=== PATIENT | male | born 1970 | race Caucasian/White ===

== ENCOUNTER 2017-02-24 08:53 | Emergency (ER) | payer SELFPAY ==
[~2017-02-24] VITALS: Ht 170.2 cm; Wt 72.0 kg
[2017-02-24] MEDS ORDERED: HALOPERIDOL 5 MG INJ IM STA (08:59)
[2017-02-24] MEDS ORDERED: SOD CHLORIDE 0.9% 1,000 ML IV STA ×2 (08:59→10:05)
[2017-02-24] MEDS ORDERED: BENZTROPINE 2 MG INJ IM ONE (09:00)
[2017-02-24] MEDS ORDERED: LORAZEPAM 2 MG INJ IM ONE (09:00)
[2017-02-24 09:15] VITALS: Ht 170.2 cm; Wt 72.0 kg
[2017-02-24 09:39] LABS: BASOPHIL # 0.1 10^3/ul (0.0-0.1); BASOPHILS % 0.5 % (0.0-2.0); EOSINOPHILS % 0.2 % (0.0-7.0); HEMATOCRIT 40.2 % (42.0-52.0); HEMOGLOBIN 13.6 g/dl (14.0-18.0); LYMPHOCYTES # 1.9 10^3/ul (0.8-2.9); LYMPHOCYTES % 14.9 % (15.0-51.0); MEAN CORPUSCULAR HEMOGLOBIN 30.7 pg (29.0-33.0); MEAN CORPUSCULAR HGB CONC 33.8 g/dl (32.0-37.0); MEAN CORPUSCULAR VOLUME 90.7 fl (82.0-101.0); MEAN PLATELET VOLUME 9.4 fl (7.4-10.4); MONOCYTE # 0.9 10^3/ul (0.3-0.9); MONOCYTES % 7.1 % (0.0-11.0); NEUTROPHILS % 76.9 % (39.0-77.0); PLATELET COUNT 326 10^3/UL (140-415); RED BLOOD COUNT 4.43 10^6/ul (4.70-6.10); RED CELL DISTRIBUTION WIDTH 12.9 % (11.5-14.5); WHITE BLOOD COUNT 12.6 10^3/ul (4.8-10.8)
[2017-02-24 09:56] LABS: ALANINE AMINOTRANSFERASE 33 IU/L (13-69); ALBUMIN 4.5 g/dl (3.3-4.9); ALBUMIN/GLOBULIN RATIO 1.32; ALKALINE PHOSPHATASE 68 IU/L (42-121); ANION GAP 17 (8-16); ASPARTATE AMINO TRANSFERASE 32 IU/L (15-46); BILIRUBIN,INDIRECT 0.6 mg/dl (0-1.1); BILIRUBIN,TOTAL 0.6 mg/dl (0.2-1.3); BLOOD UREA NITROGEN 17 mg/dl (7-20); CALCIUM 9.3 mg/dl (8.4-10.2); CARBON DIOXIDE 25 mmol/L (21-31); CHLORIDE 109 mmol/L (97-110); CREATININE 0.78 mg/dl (0.61-1.24); GLUCOSE 227 mg/dl (70-220); POTASSIUM 3.7 mmol/L (3.5-5.1); SODIUM 147 mmol/L (135-144); TOTAL PROTEIN 7.9 g/dl (6.1-8.1)
[2017-02-24 09:59] LABS: ACETAMINOPHEN < 10.0 ug/ml (10.0-30.0); ETHANOL < 10.0 mg/dl; SALICYLATE < 1.0 mg/dl (5.0-30.0)
--- NOTE | 2017-02-24 10:34 | RADRPT ---
PROCEDURE: XR Chest. CLINICAL INDICATION: Altered mental status TECHNIQUE: Single frontal view of the chest was obtained COMPARISON: None FINDINGS: The heart and mediastinum are within normal limits. The lungs are clear. There is no pleural effusion or pneumothorax. The bones and soft tissue show no acute change. IMPRESSION: No definite abnormalities are identified. RPTAT:AAJJ Roland Reyes Physician Date Time Electronically viewed and signed by Roland Reyes Physician on 02/24/2017 10:33 /
[2017-02-24 11:08] LABS: ADD UMIC YES; UR AMORPHOUS CRYSTAL MODERATE /HPF (NONE SEEN); UR ASCORBIC ACID 40 mg/dL (NEGATIVE); UR BILIRUBIN (Dip) NEGATIVE (NEGATIVE); UR BLOOD (Dip) NEGATIVE (NEGATIVE); UR CLARITY TURBID (CLEAR); UR COLOR GREEN (YELLOW); UR GLUCOSE (Dip) 2+ mg/dL (NEGATIVE); UR KETONES (Dip) NEGATIVE (NEGATIVE); UR LEUKOCYTE ESTERASE (Dip) NEGATIVE Leu/ul (NEGATIVE); UR MUCUS FEW /HPF (NONE SEEN); UR NITRITE (Dip) NEGATIVE (NEGATIVE); UR RBC 1 /HPF (0-5); UR SPECIFIC GRAVITY (Dip) 1.028 (1.003-1.030); UR TOTAL PROTEIN (Dip) 2+ mg/dl (NEGATIVE); UR UROBILINOGEN (Dip) NEGATIVE (NEGATIVE)
[2017-02-24 11:38] LABS: CANNABINOIDS Negative (NEGATIVE)
[2017-02-24 11:46] LABS: BARBITURATES Negative (NEGATIVE); BENZODIAZEPINES Negative (NEGATIVE); COCAINE Negative (NEGATIVE); OPIATES Negative (NEGATIVE)
--- NOTE | 2017-02-24 13:58 | ERA ---
ER Documentation Chief Complaint Date/Time DATE: 02/24/17 TIME: 13:51 Chief Complaint HPI This is a 46-year-old male who presents to the emergency room with agitation. The patient was found running away from police in the field. It was hot outside. The patient admitted to using cocaine and methamphetamine. The patient was brought in because of agitation. Upon arrival the patient agitated the only history is able to provide is that he used cocaine and methamphetamine. There is no report of fall or trauma head injury. The patient was agitated requiring restraints upon arrival. ROS All systems reviewed and are negative except as per history of present illness. Medications Home Meds Unable to Obtain Active Prescriptions or Reported Meds Allergies Allergies: Coded Allergies: Unknown: Unable to obtain (Unverified , 02/24/17) PMhx/Soc Medical and Surgical Hx: Unable to obtain Hx Alcohol Use: Yes Hx Substance Use: Yes Hx Tobacco Use: No Smoking Status: Unknown if ever smoked FmHx Family History: No diabetes Physical Exam Vitals Vital Signs Date Time Temp Pulse Resp B/P Pulse Ox O2 Delivery O2 Flow Rate FiO2 02/24/17 13:48 73 16 114/68 97 Room Air 02/24/17 12:13 85 17 112/63 96 Room Air 02/24/17 09:15 100.5 91 18 129/98 93 Physical Exam General: Disheveled, agitated head: Normocephalic, atraumatic Eyes: Pupils equally reactive, EOM intact ENT: Very dry mucous membranes Neck: Supple, no lymphadenopathy Respiratory: Lungs clear bilaterally, no distress Cardiovascular: Tachycardia, no murmurs, rubs, or gallops Abdominal: Soft, non-tender, non-distended, no peritoneal signs : Deferred MSK: No edema, no unilateral swelling, 5/5 strength Neurologic: Alert and oriented to person but agitated and uncooperative, moving all extremities, no focal deficit Skin: No rash, no evidence of trauma Psych: Normal mood Result Diagram: 02/24/1720 02/24/1720 Results 24 hrs Laboratory Tests Test 02/24/17 09:20 02/24/17 10:25 White Blood Count 12.610^3/ul Red Blood Count 4.4310^6/ul Hemoglobin 13.6g/dl Hematocrit 40.2% Mean Corpuscular Volume 90.7fl Mean Corpuscular Hemoglobin 30.7pg Mean Corpuscular Hemoglobin Concent 33.8g/dl Red Cell Distribution Width 12.9% Platelet Count 78884^3/UL Mean Platelet Volume 9.4fl Neutrophils % 76.9% Lymphocytes % 14.9% Monocytes % 7.1% Eosinophils % 0.2% Basophils % 0.5% Nucleated Red Blood Cells % 0.0/100WBC Neutrophils # (Manual) 9.710^3/ul Lymphocytes # 1.910^3/ul Monocytes # 0.910^3/ul Eosinophils # 0.010^3/ul Basophils # 0.110^3/ul Nucleated Red Blood Cells # 0.010^3/ul Sodium Level 147mmol/L Potassium Level 3.7mmol/L Chloride Level 109mmol/L Carbon Dioxide Level 25mmol/L Anion Gap 17 Blood Urea Nitrogen 17mg/dl Creatinine 0.78mg/dl Glucose Level 227mg/dl Calcium Level 9.3mg/dl Total Bilirubin 0.6mg/dl Direct Bilirubin 0.00mg/dl Indirect Bilirubin 0.6mg/dl Aspartate Amino Transf (AST/SGOT) 32IU/L Alanine Aminotransferase (ALT/SGPT) 33IU/L Alkaline Phosphatase 68IU/L Total Protein 7.9g/dl Albumin 4.5g/dl Globulin 3.40g/dl Albumin/Globulin Ratio 1.32 Salicylates Level < 1.0mg/dl Acetaminophen Level < 10.0ug/ml Ethyl Alcohol Level < 10.0mg/dl Urine Color GREEN Urine Clarity TURBID Urine pH 5.0 Urine Specific [place] 1.028 Urine Ketones NEGATIVEmg/dL Urine Nitrite NEGATIVEmg/dL Urine Bilirubin NEGATIVEmg/dL Urine Urobilinogen NEGATIVEmg/dL Urine Leukocyte Esterase NEGATIVELeu/ul Urine Microscopic RBC 1/HPF Urine Microscopic WBC 0/HPF Urine Amorphous Crystals MODERATE/HPF Urine Mucus FEW/HPF Urine Hemoglobin NEGATIVEmg/dL Urine Glucose 2+mg/dL Urine Total Protein 2+mg/dl Urine Opiates Screen Negative Urine Barbiturates Negative Urine Amphetamines Screen POSITIVE Urine Benzodiazepines Screen Negative Urine Cocaine Screen Negative Urine Cannabinoids Negative Current Medications Medications (Trade) Dose Ordered Sig/[place] Route PRN Reason Start Time Stop Time Status Last Admin Dose Admin Sodium Chloride (NS) 1,000 ml @ 1,000 mls/hr Q1H STAT IV 02/24/17 08:59 02/24/17 09:58 DC 02/24/17 09:15 Haloperidol (Haldol) 5 mg ONCE STAT IM 02/24/17 08:59 02/24/17 09:02 DC 02/24/17 09:16 Lorazepam (Ativan) 2 mg ONCE ONCE IM 02/24/17 09:00 02/24/17 09:02 DC 02/24/17 09:16 Benztropine Mesylate 1 mg 1 mg ONCE ONCE IM 02/24/17 09:00 02/24/17 09:02 DC 02/24/17 09:14 Sodium Chloride (NS) 1,000 ml @ 1,000 mls/hr Q1H STAT IV 02/24/17 10:05 02/24/17 11:04 DC 02/24/17 11:48 Procedures/MDM LAB INTERPRETATION: Nonspecific white count of 12 likely secondary to stress response, positive amphetamines Procedure: Restrains: Indication: Acute agitation Location: 4 point restraints to bilateral upper and lower extremities The patient was given verbal warnings that if the behavior continued the patient would require physical and/or chemical restraints. Despite verbal warnings the behavior continued and restraints were applied. The patient had a bedside reevaluation within 50 minutes of placement of restraints. Patient remained stable. MEDICAL DECISION MAKING: The patient's presentation is consistent with underlying psychiatric illness and likely exacerbation of this illness and/or psychosis. I have a much lower clinical concern for delirium or acute organic pathology such as toxicologic, metabolic, ischemic, intracranial hemorrhage, infectious process. However, we must rule this out prior to relying a diagnosis of underlying psychiatric illness. The patient's workup will include medical screening examination, laboratory analysis, and diagnostic imaging such as EKG, chest x-ray or CT brain as indicated. If the patient's medical examination and laboratory analysis do not reveal acute organic pathology the patient will be medically cleared for psychiatric evaluation. ER COURSE: Upon arrival the patient was significantly agitated requiring Haldol, Ativan, Cogentin IM. The patient did have a low-grade temperature at triage however the patient had heat exposure outside and this is likely environmental. I do not believe the patient's agitation is secondary to infectious process such as meningitis. He has a white count of 12 that is likely secondary to stress response. The patient was given IV fluids and while monitored inside the hospital with air conditioning his body temperature returned to normal. Again, I do not believe this is consistent with meningitis. This is more consistent with likely Sirs response secondary to acute sympathomimetic toxidrome, heat exposure and dehydration. The patient was given IV fluids. The patient's laboratory analysis, diagnostic imaging do not suggest an acute organic pathology. At this time I believe the patient's presentation is very consistent with underlying psychiatric illness. The patient is medically cleared for psychiatric evaluation. I kept the patient and/or family informed of laboratory and diagnostic imaging results throughout the emergency room course. The patient will need to be reevaluated after more arousable. If the patient is cleared without any evidence of acute psychosis that warrants hospitalization the patient can be discharged. DISPOSITION PLAN: Pending reevaluation, patient endorsed the Dr. Douglas Departure Diagnosis: Primary Impression: Overdose of sympathomimetic agent Qualified Code: T44.901A - Overdose of sympathomimetic agent, accidental or unintentional, initial encounter Additional Impressions: Agitation Methamphetamine abuse Methamphetamine use Condition: Stable MARY SIMPSON MD Feb 24, 2017 13:58
--- NOTE | 2017-02-24 22:37 | PSY ---
Date/Time of Note Date/Time of Note DATE: 02/24/17 TIME: 22:31 Psychiatric Subjective Eval Consent Pt consented to telemedicine: Yes Subjective Evaluation Patient location: emergency Chief Complaint: Evaluation Reason for consult: Agitation History of present illness Pt is a 46 year old male, homeless since 2006, who appeared agitated and was picked up by the police. He was noted to be using meth, dehydrated and had to be put in restraints. Pt remains confused and does not present a coherent plan. He says he tried to commit suicide today by running toward a fence. He was then "tackled" and "strangled" by the police. He could not tell me what about the fence would take his life. It was not a jumping situation. Pt does report taking medications. He thinks he takes remeron and abilify ( maybe). He says he does not use meth very often. He has psychiatric admissions to inpatient psychiatry but cannot tell me why. He would like to go somewhere "safe" where "other people like me go." Past psychiatric history As noted above. States he was getting care because of "my personality." Hospitalization: yes Family History Unknown Medical history Problems Medical Problems: (1) Agitation Status: Acute (2) Methamphetamine abuse Status: Acute (3) Methamphetamine use Status: Acute (4) Overdose of sympathomimetic agent Status: Acute Allergies: Coded Allergies: Unknown: Unable to obtain (Unverified , 02/24/17) Substance Abuse Substance abuse history: Yes Social History Marital status: single Level of education: GED Occupation/[facility]: Survives on general relief Psychiatric Objective Eval Mental Status Examination: Appearance: Disheveled Eye Contact: Poor Psychomotor Activity: Slow Behavior: Bizarre Speech: Soft, Monotone, Slowed AFFECT: Flat Though Process: Illogical Thought Content: Delusions Suicidal: Yes Homicidal: No On 72 hour hold: No Orientation: x3 Cognition: Alert Insight: Impared Judgement: Impared Laboratory Results Laboratory Tests Test 02/24/17 09:20 02/24/17 10:25 White Blood Count 12.610^3/ul Red Blood Count 4.4310^6/ul Hemoglobin 13.6g/dl Hematocrit 40.2% Mean Corpuscular Volume 90.7fl Mean Corpuscular Hemoglobin 30.7pg Mean Corpuscular Hemoglobin Concent 33.8g/dl Red Cell Distribution Width 12.9% Platelet Count 79537^3/UL Mean Platelet Volume 9.4fl Neutrophils % 76.9% Lymphocytes % 14.9% Monocytes % 7.1% Eosinophils % 0.2% Basophils % 0.5% Nucleated Red Blood Cells % 0.0/100WBC Neutrophils # (Manual) 9.710^3/ul Lymphocytes # 1.910^3/ul Monocytes # 0.910^3/ul Eosinophils # 0.010^3/ul Basophils # 0.110^3/ul Nucleated Red Blood Cells # 0.010^3/ul Sodium Level 147mmol/L Potassium Level 3.7mmol/L Chloride Level 109mmol/L Carbon Dioxide Level 25mmol/L Anion Gap 17 Blood Urea Nitrogen 17mg/dl Creatinine 0.78mg/dl Glucose Level 227mg/dl Calcium Level 9.3mg/dl Total Bilirubin 0.6mg/dl Direct Bilirubin 0.00mg/dl Indirect Bilirubin 0.6mg/dl Aspartate Amino Transf (AST/SGOT) 32IU/L Alanine Aminotransferase (ALT/SGPT) 33IU/L Alkaline Phosphatase 68IU/L Total Protein 7.9g/dl Albumin 4.5g/dl Globulin 3.40g/dl Albumin/Globulin Ratio 1.32 Salicylates Level < 1.0mg/dl Acetaminophen Level < 10.0ug/ml Ethyl Alcohol Level < 10.0mg/dl Urine Color GREEN Urine Clarity TURBID Urine pH 5.0 Urine Specific [place] 1.028 Urine Ketones NEGATIVEmg/dL Urine Nitrite NEGATIVEmg/dL Urine Bilirubin NEGATIVEmg/dL Urine Urobilinogen NEGATIVEmg/dL Urine Leukocyte Esterase NEGATIVELeu/ul Urine Microscopic RBC 1/HPF Urine Microscopic WBC 0/HPF Urine Amorphous Crystals MODERATE/HPF Urine Mucus FEW/HPF Urine Hemoglobin NEGATIVEmg/dL Urine Glucose 2+mg/dL Urine Total Protein 2+mg/dl Urine Opiates Screen Negative Urine Barbiturates Negative Urine Amphetamines Screen POSITIVE Urine Benzodiazepines Screen Negative Urine Cocaine Screen Negative Urine Cannabinoids Negative Assessment and Plan Assessment/Diagnosis [place] I: Unspecified Psychotic Disorder, Stimulant Use Disorder Recommendation/Plan Medication Management Per inpatient psychiatry Psychotherapy N/A Pt. Caregiver/Family Education N/A Follow-up/Disposition Pt story is confusing and he is a poor historian. Given his presentation, I would recommend a 5150 for GD and DTS and transfer patient to inpatient psychiatry. He is not able to provide a plan for his own self care. 5150 Recommendation: MILTON Hamilton Feb 24, 2017 22:37
[2017-02-25 18:30] VITALS: BP 115/63; PULSE 60; RESP 16; TEMP 97
== END 2017-02-25 23:15 ==
LOC: E/R 08:53
DX: T44.901A Poisoning by unspecified drugs primarily affecting the autonomic nervous system, accidental (unintentional), initial encounter (principal); R40.2222 Coma scale, best verbal response, incomprehensible words, at arrival to emergency department; F15.10 Other stimulant abuse, uncomplicated; R40.2132 Coma scale, eyes open, to sound, at arrival to emergency department; R40.2362 Coma scale, best motor response, obeys commands, at arrival to emergency department
CPT/HCPCS: 36415; 71010; 80053; 80306; 80307; 81001; 85025; 96360; 96361; 96372; 99285; A4310; J0515; J1630; J2060; J7030